=== PATIENT | female | born 1990 | race Caucasian/White ===

== ENCOUNTER 2018-12-09 14:01 | Emergency (ER) | payer OTHER ==
[~2018-12-09] VITALS: Ht 170.2 cm; Wt 66.8 kg
[~2018-12-09 14:01] MED LIST: DOCU-144 PO; FERR325C PO; HYDR-4011 PO
[2018-12-09 14:09] VITALS: BP 110/68; PULSE 62; RESP 18; Ht 170.2 cm; Wt 66.8 kg
== END 2018-12-09 15:04 | disposition home or self-care (01) ==
LOC: E/R 14:01
DX: S99.921A Unspecified injury of right foot, initial encounter (principal); W20.8XXA Other cause of strike by thrown, projected or falling object, initial encounter; Y92.9 Unspecified place or not applicable
CPT/HCPCS: 73630; Z7502

== ENCOUNTER 2019-01-28 19:37 | Emergency (ER) | payer OTHER ==
[~2019-01-28] VITALS: Ht 170.2 cm; Wt 65.0 kg
[~2019-01-28 19:37] MED LIST changes: +BENZ200C68 PO
[2019-01-28 19:46] VITALS: BP 126/73; PULSE 18; RESP 20; Ht 170.2 cm; Wt 65.0 kg
== END 2019-01-29 00:05 | disposition home or self-care (01) ==
LOC: FTE 19:37
DX: R04.0 Epistaxis (principal); R05 Cough
CPT/HCPCS: 71045; Z7502